=== PATIENT | female | born 2000 | race Caucasian/White ===

== ENCOUNTER 2019-10-29 14:02 | Emergency (ER) | payer MEDICAID, OTHER ==
[~2019-10-29] VITALS: Ht 165.1 cm; Wt 105.0 kg
[2019-10-29 18:59] VITALS: BP 131/69
== END 2019-10-29 19:00 | disposition home or self-care (01) ==
LOC: M ED 14:02
DX: Z48.02 Encounter for removal of sutures (principal)

== ENCOUNTER 2020-08-15 08:00 | Emergency (ER) | payer MEDICAID, OTHER ==
[~2020-08-15] VITALS: Ht 165.1 cm; Wt 115.7 kg
[2020-08-15] MEDS ORDERED: PREVTAB2 PO (08:05)
[2020-08-15] MEDS ORDERED: PANTOPRAZOLE 40MG VIAL (C9113 PER 1) IV ONE (08:30)
[2020-08-15] MEDS ORDERED: NS 1,000 ML IV ONE (08:30)
[2020-08-15] MEDS ORDERED: ACETAMINOPHEN TAB 650MG DOSE (2X325MG) PO ONE (08:30)
[2020-08-15] MEDS ORDERED: ONDANSETRON 4MG/2ML VIAL IV ONE (08:30)
[2020-08-15 09:17] LABS: BASO % 0.5 % (0.0-1.0); EOS # 0.1 10^3/uL (0.0-0.5); HEMATOCRIT 36.9 % (36.0-47.0); HEMOGLOBIN 12.1 g/dl (12.0-15.5); LYMPH # 1.8 10^3/uL (1.5-5.0); LYMPH % 22.7 % (24.0-44.0); MEAN CORPUSCULAR HEMOGLOBIN 27.4 pg (27.0-33.0); MEAN CORPUSCULAR HGB CONC 32.8 g/dl (32.0-36.5); MEAN CORPUSCULAR VOLUME 83.7 fl (80.0-96.0); MONO # 0.6 10^3/uL (0.0-0.8); MONO % 7.6 % (0.0-5.0); NEUTROPHILS # 5.5 10^3/uL (1.5-8.5); PLATELET COUNT, AUTOMATED 257 10^3/uL (150-450); RED BLOOD COUNT 4.41 10^6/uL (4.00-5.40)
[2020-08-15] MEDS ORDERED: ISOVUE-370 76% 100ML VIAL As Ordered ONE (09:30)
[2020-08-15 09:52] LABS: ALBUMIN 3.5 GM/DL (3.2-5.2); ALT/SGPT 55 U/L (12-78); AMYLASE 27 U/L (25-115); BILIRUBIN,DIRECT 0.1 MG/DL (0.0-0.2); BILIRUBIN,TOTAL 0.4 MG/DL (0.2-1.0); CK-MB VALUE MASS < 1.0 NG/ML (<3.6); CPK CREATINE PHOSPHOKINASE 92 U/L (26-192); LIPASE 38 U/L (73-393); MB/CK RELATIVE INDEX 1.09 (< OR =4); TOTAL PROTEIN 7.4 GM/DL (6.4-8.2); TROPONIN I 0.03 NG/ML (< 0.10)
--- NOTE | 2020-08-15 10:17 | REPVR ---
PROCEDURE INFORMATION: Exam: CT Abdomen And Pelvis With Contrast Exam date and time: 08/15/2020 9:42 AM Age: 19 years old Clinical indication: Abdominal pain; Localized; Upper; Additional info: Diffuse upper abd pain, n/v/d TECHNIQUE: Imaging protocol: Computed tomography of the abdomen and pelvis with intravenous contrast. Radiation optimization: All CT scans at this facility use at least one of these dose optimization techniques: automated exposure control; mA and/or kV adjustment per patient size (includes targeted exams where dose is matched to clinical indication); or iterative reconstruction. Contrast material: ISOVUE 370; Contrast volume: 100 ml; Contrast route: INTRAVENOUS (IV); COMPARISON: No relevant prior studies available. FINDINGS: Liver: Normal. No mass. Gallbladder and bile ducts: Normal. No calcified stones. No ductal dilation. Pancreas: Normal. No ductal dilation. Spleen: Normal. No splenomegaly. Adrenals: Normal. No mass. Kidneys and ureters: Normal. No hydronephrosis. Stomach and bowel: Unremarkable. No obstruction. No mucosal thickening. Appendix: Surgical miky and/or clips are noted at the previous base of the appendix. The appendix is surgically absent. Intraperitoneal space: Unremarkable. No free air. No significant fluid collection. Vasculature: Unremarkable. No abdominal aortic aneurysm. Lymph nodes: No enlarged lymph nodes. Urinary bladder: The urinary bladder is partially decompressed and somewhat difficult to assess. Reproductive: Left ovarian 17 mm marginally enhancing physiologic follicle. Bones/joints: Unremarkable. No acute fracture. Soft tissues: A tiny paraumbilical hernia containing only abdominal fat is noted. IMPRESSION: 1. No acute abdominal or pelvic abnormality identified. 2. Prior appendectomy. Electronically signed by: Seven Alejandre On 08/15/2020 10:16:45 AM
--- NOTE | 2020-08-15 10:17 | REPVR ---
PROCEDURE INFORMATION: Exam: XR Chest, 2 Views Exam date and time: 08/15/2020 9:55 AM Age: 19 years old Clinical indication: Other: Abdominal pain TECHNIQUE: Imaging protocol: XR of the chest Views: Frontal and lateral upright views. COMPARISON: No relevant prior studies available. FINDINGS: Tubes, catheters and devices: EKG leads are present overlying the anterior chest. Lungs: The lungs are clear bilaterally. The pulmonary vasculature is normal. Pleural space: No pleural effusion. No pneumothorax. Heart/Mediastinum: The heart is normal in size and contour. Bones/joints: No acute chest wall abnormality identified. Organs: Excreted contrast is present in the bilateral renal collecting systems. IMPRESSION: No acute cardiopulmonary abnormality identified. Electronically signed by: Seven Alejandre On 08/15/2020 10:17:27 AM
--- NOTE | 2020-08-15 10:55 | REPVR ---
PROCEDURE INFORMATION: Exam: US Abdomen, Limited; Right Upper Quadrant Exam date and time: 08/15/2020 10:47 AM Age: 19 years old Clinical indication: Abdominal pain; Epigastric; Additional info: Upper abd pain, R/O cholelithiasis/cholecystitis TECHNIQUE: Imaging protocol: US abdomen. Real time ultrasound with image documentation. Limited exam focused on the right upper quadrant. COMPARISON: CT ABD/PEL W/IV CONTRAST ONLY 08/15/2020 9:35 AM FINDINGS: Liver: Normal. No masses. Gallbladder: The gallbladder wall measures 1.9 mm. No gallstones. Common bile duct: The common bile duct measures 4.6 mm. No ductal calculi as visualized. Pancreas: The pancreas head, neck and body are unremarkable. The tail of the gland is obscured by bowel gas. Right kidney: The right kidney measures 10.7 x 4.7 x 5.8 cm. Unremarkable. A brief color Doppler examination of the right kidney was performed showing normal color shifts. IMPRESSION: No acute right upper quadrant abnormality identified. Electronically signed by: Seven Alejandre On 08/15/2020 10:55:06 AM
[2020-08-15] MEDS ORDERED: ONDA4TAB6 PO (11:14)
[2020-08-15] MEDS ORDERED: PROT1TAB2 PO (11:36)
[2020-08-15 12:00] VITALS: BP 137/65
--- NOTE | 2020-08-16 05:28 | ECGEPIP ---
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
== END 2020-08-15 12:05 | disposition home or self-care (01) ==
LOC: M ED 08:00
DX: R10.84 Generalized abdominal pain (principal); R11.2 Nausea with vomiting, unspecified; R19.7 Diarrhea, unspecified; R50.9 Fever, unspecified; Z79.3 Long term (current) use of hormonal contraceptives
CPT/HCPCS: 71046; 74177; 76705; 80047; 80076; 81001; 82150; 82550; 82553; 83605; 83690; 84702; 85025; 87086; 87880; 93005; 96361; 96374; 96375; 99284; C9113; J2405; Q9967

== ENCOUNTER → 2021-04-24 | Outpatient (CLI) | payer OTHER, SELFPAY ==
[~2021-04-24] MED LIST: ONDA4TAB6 PO; PREVTAB2 PO; PROT1TAB2 PO
--- NOTE | 2021-04-24 12:56 | REP ---
INDICATION: PAIN IN THORACIC SPINE COMPARISON: None. TECHNIQUE: AP, lateral, and swimmers views. FINDINGS: Alignment and kyphosis is maintained. Vertebral bodies intact. No acute fracture / compression injury or subluxation. No degenerative changes. Paravertebral soft tissues are normal. IMPRESSION: Normal thoracic spine series. <Electronically signed by Long Clemente > 04/24/21 [id number]
== END ==
LOC: M RAD 12:21
PROVIDERS: ATTEND Pediatrics
DX: M54.14 Radiculopathy, thoracic region (principal)

== ENCOUNTER 2021-06-13 22:24 | Emergency (ER) | payer OTHER ==
[~2021-06-13] VITALS: Ht 165.1 cm; Wt 128.3 kg
[2021-06-13 22:26] VITALS: BP 138/84
== END 2021-06-13 23:40 | disposition left against medical advice (07) ==
LOC: M ED 22:24
DX: Z53.21 Procedure and treatment not carried out due to patient leaving prior to being seen by health care provider (principal)

== ENCOUNTER 2021-07-05 20:16 | Emergency (ER) | payer OTHER ==
[~2021-07-05] VITALS: Ht 165.1 cm; Wt 125.5 kg
[2021-07-05 20:18] VITALS: BP 137/58
== END 2021-07-06 00:49 | disposition left against medical advice (07) ==
LOC: M ED 20:16
DX: Z53.21 Procedure and treatment not carried out due to patient leaving prior to being seen by health care provider (principal)

== ENCOUNTER 2021-07-08 17:18 | Emergency (ER) | payer OTHER ==
[~2021-07-08] VITALS: Ht 165.1 cm; Wt 126.7 kg
[2021-07-08] MEDS ORDERED: DOXY1CAP62 PO (22:38)
[2021-07-08] MEDS ORDERED: DOXYCYCLINE HYCLATE 100MG TABLET PO ONE (22:45)
[2021-07-08 22:51] VITALS: BP 132/68
== END 2021-07-08 22:52 | disposition home or self-care (01) ==
LOC: M ED 17:18
DX: L03.311 Cellulitis of abdominal wall (principal)

== ENCOUNTER 2021-07-09 10:24 | Emergency (ER) | payer OTHER ==
[~2021-07-09] VITALS: Ht 165.1 cm; Wt 126.9 kg
[~2021-07-09 10:24] MED LIST changes: +DOXY1CAP62 PO
[2021-07-09] MEDS ORDERED: NS 1,000 ML IV ONE (12:30)
--- NOTE | 2021-07-09 13:57 | REP ---
INDICATION: CHEST PAIN. COMPARISON: 08/15/2020 TECHNIQUE: PA and lateral FINDINGS: There is cardiomegaly with left ventricular configuration increased from the prior exam. Lung almonte are clear and stable. No acute patchy parenchymal opacities or pleural effusions have developed the pleural angles are sharp. The osseous structures are stable and intact. IMPRESSION: Cardiomegaly without evidence of acute cardiopulmonary disease. <Electronically signed by Peter Gardiner > 07/09/21 [id number]
[2021-07-09 14:19] LABS: HEMATOCRIT 35.2 % (36.0-47.0); HEMOGLOBIN 11.8 g/dl (12.0-15.5); MEAN CORPUSCULAR HEMOGLOBIN 28.4 pg (27.0-33.0); MEAN CORPUSCULAR HGB CONC 33.5 g/dl (32.0-36.5); MEAN CORPUSCULAR VOLUME 84.6 fl (80.0-96.0); PLATELET COUNT, AUTOMATED 358 10^3/uL (150-450); RED BLOOD COUNT 4.16 10^6/uL (4.00-5.40); WHITE BLOOD COUNT 9.1 10^3/uL (4.0-10.0)
[2021-07-09 14:31] LABS: INR 0.94; PROTHROMBIN TIME 12.9 SECONDS (12.7-14.5)
[2021-07-09 14:32] LABS: PARTIAL THROMBOPLASTIN TIME 38.5 SECONDS (25.9-37.0)
[2021-07-09 14:34] LABS: D-DIMER QUANT 650.56 ng/ml (<500)
[2021-07-09 14:50] LABS: ERYTHROCYTE SEDIMENTATION RATE 47 mm/hr (0-20)
[2021-07-09] MEDS ORDERED: ISOVUE-370 76% 100ML VIAL As Ordered ONE (14:58)
[2021-07-09 15:03] LABS: LYMPHOCYTES 23 % (16-44); NEUTROPHILS 77 % (28-66)
[2021-07-09 15:04] LABS: PLATELET ESTIMATE NORMAL (NORMAL)
[2021-07-09 15:18] LABS: ALBUMIN 3.4 GM/DL (3.2-5.2); ALT/SGPT 49 U/L (12-78); BILIRUBIN,DIRECT 0.1 MG/DL (0.0-0.2); BILIRUBIN,TOTAL 0.6 MG/DL (0.2-1.0); CK-MB VALUE MASS < 1.0 NG/ML (<3.6); CPK CREATINE PHOSPHOKINASE 163 U/L (26-192); FREE T4 1.09 NG/DL (0.76-1.46); LIPASE 50 U/L (73-393); MAGNESIUM LEVEL 2.2 MG/DL (1.8-2.4); MB/CK RELATIVE INDEX 0.61 (< OR =4); NT-PRO BNP 997 PG/ML (<125); TOTAL PROTEIN 7.3 GM/DL (6.4-8.2); TROPONIN I < 0.02 NG/ML (< 0.10)
--- NOTE | 2021-07-09 15:38 | REP ---
INDICATION: SOB; r/o PE. COMPARISON: Radiographs today. TECHNIQUE: CT angiogram chest performed following the intravenous administration of 100 cc of Isovue 370. Sagittal and coronal reconstruction images are performed. FINDINGS: Lungs: Clear, no infiltrate or nodule. Mediastinum: No adenopathy. Pulmonary arteries: No evidence of pulmonary embolism. Mercedes: No adenopathy. Axilla: No adenopathy. Pleura: No effusion. Heart: Not enlarged. Thoracic aorta: No aneurysm or dissection. Upper abdominal structures: Unremarkable. Visualized osseous structures: Unremarkable. IMPRESSION: No CT evidence of pulmonary embolism. No infiltrate seen. <Electronically signed by Paulino Metz > 07/09/21 [id number]
[2021-07-09 17:45] VITALS: BP 120/58
--- NOTE | 2021-07-09 19:40 | ECGEPIP ---
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
--- NOTE | 2021-07-11 13:11 | ED PDOC ---
Post-Departure Follow-Up dr carreon faxed formal report of cxr for fu anandg Hugh Diaz MD Jul 11, 2021 13:11
== END 2021-07-09 18:07 | disposition home or self-care (01) ==
LOC: M ED 10:24
DX: I44.0 Atrioventricular block, first degree (principal); I51.7 Cardiomegaly; R00.2 Palpitations
CPT/HCPCS: 36415; 71046; 71275; 80047; 80076; 82550; 82553; 83690; 83735; 83880; 84439; 84443; 84702; 85025; 85379; 85610; 85652; 85730; 86140; 93005; 93041; 94760; 99285; Q9967

== ENCOUNTER → 2021-08-08 | Outpatient (REF) | payer BC, OTHER ==
[~2021-08-08] MED LIST changes: +DOXY-443 PO; -DOXY1CAP62 PO
== END ==
LOC: M SFHCWAGY 14:56
PROVIDERS: ATTEND Advanced Practice Midwife
DX: Z01.419 Encounter for gynecological examination (general) (routine) without abnormal findings (principal); Z12.4 Encounter for screening for malignant neoplasm of cervix; Z77.9 Other contact with and (suspected) exposures hazardous to health

== ENCOUNTER → 2021-10-24 | Outpatient (CLI) | payer BC, OTHER | LOC: M CARPUL 14:04 | PROVIDERS: ATTEND Pediatrics | DX: R07.9 Chest pain, unspecified (principal); I34.0 Nonrheumatic mitral (valve) insufficiency ==

== ENCOUNTER 2021-12-05 08:46 | Emergency (ER) | payer BC, MEDICAID, OTHER ==
[~2021-12-05] VITALS: Ht 165.1 cm; Wt 121.4 kg
[2021-12-05] MEDS ORDERED: ONDANSETRON 4 MG ORAL DISINTEGRATING TAB PO ONE (09:15)
[2021-12-05 11:09] LABS: AMPHETAMINES LEVEL URINE NEGATIVE (NEGATIVE); BARBITURATES URINE NEGATIVE (NEGATIVE); BENZODIAZEPINES URINE NEGATIVE (NEGATIVE); CANNABINOIDS URINE POSITIVE (NEGATIVE); COCAINE METABOLITE URINE NEGATIVE (NEGATIVE); METHADONE URINE NEGATIVE (NEGATIVE); OPIATES URINE NEGATIVE (NEGATIVE); PHENCYCLIDINE URINE NEGATIVE (NEGATIVE)
[2021-12-05 11:41] VITALS: BP 117/72
== END 2021-12-05 12:03 | disposition home or self-care (01) ==
LOC: M ED 08:46
DX: F12.120 Cannabis abuse with intoxication, uncomplicated (principal)
CPT/HCPCS: 80307; 82077; 99284; Q0162

== ENCOUNTER → 2022-04-09 | Outpatient (CLI) | payer MEDICAID, OTHER | LOC: M RAD 10:49 | PROVIDERS: ATTEND Pediatrics | DX: S93.401A Sprain of unspecified ligament of right ankle, initial encounter (principal); W18.30XA Fall on same level, unspecified, initial encounter; Y92.009 Unspecified place in unspecified non-institutional (private) residence as the place of occurrence of the external cause ==

== ENCOUNTER → 2023-02-12 | Outpatient (REF) | payer OTHER | LOC: M PLALAB 10:34 | PROVIDERS: ATTEND Nurse Practitioner Family | DX: Z11.3 Encounter for screening for infections with a predominantly sexual mode of transmission (principal) ==

== ENCOUNTER 2023-11-05 16:54 | Emergency (ER) | payer OTHER ==
[~2023-11-05] VITALS: Ht 165.1 cm; Wt 117.6 kg
[2023-11-05] MEDS ORDERED: BENZ200C70 PO (18:24)
[2023-11-05] MEDS ORDERED: AMOX875T2 PO (18:24)
[2023-11-05] MEDS ORDERED: BENZONATATE 100MG CAPSULE PO ONE (18:25)
[2023-11-05] MEDS ORDERED: AUGMENTIN 875 MG TAB PO ONE (18:25)
[2023-11-05 18:43] VITALS: BP 142/82; TEMP 98.8; O2SAT 94
== END 2023-11-05 18:48 | disposition home or self-care (01) ==
LOC: M ED 16:54
DX: J01.90 Acute sinusitis, unspecified (principal); Z86.16 Personal history of COVID-19

== ENCOUNTER → 2023-12-04 | Outpatient (REF) | payer OTHER ==
[~2023-12-04] MED LIST changes: +AMOX875T2 PO; +BENZ200C70 PO
== END ==
LOC: M LAB REF 17:45
PROVIDERS: ATTEND Nurse Practitioner Family
DX: N95.2 Postmenopausal atrophic vaginitis (principal)

== ENCOUNTER 2023-12-17 18:55 | Emergency (ER) | payer OTHER ==
[~2023-12-17] VITALS: Ht 165.1 cm; Wt 116.1 kg
[2023-12-17 20:20] LABS: BASO # 0.1 10^3/uL (0.0-0.2); BASO % 0.4 % (0.0-1.0); EOS # 0.1 10^3/uL (0.0-0.5); EOS % 0.4 % (0.0-3.0); HEMATOCRIT 38.2 % (36.0-47.0); HEMOGLOBIN 13.1 g/dl (12.0-15.5); LYMPH # 3.5 10^3/uL (1.5-5.0); LYMPH % 22.6 % (24.0-44.0); MEAN CORPUSCULAR HEMOGLOBIN 29.3 pg (27.0-33.0); MEAN CORPUSCULAR HGB CONC 34.3 g/dl (32.0-36.5); MEAN CORPUSCULAR VOLUME 85.5 fl (80.0-96.0); MONO % 6.6 % (2.0-8.0); NEUTROPHILS # 10.7 10^3/uL (1.5-8.5); NEUTROPHILS % 69.7 % (36.0-66.0); PLATELET COUNT, AUTOMATED 282 10^3/uL (150-450); RED BLOOD COUNT 4.47 10^6/uL (4.00-5.40); WHITE BLOOD COUNT 15.3 10^3/uL (4.0-10.0)
[2023-12-17 20:31] LABS: BLOOD UREA NITROGEN 8 MG/DL (9-23); CALCIUM LEVEL 9.1 MG/DL (8.5-10.1); CARBON DIOXIDE LEVEL 24 MMOL/L (20-31); CHLORIDE LEVEL 107 MMOL/L (98-107); CREATININE FOR GFR 0.58 MG/DL (0.55-1.30); GLOMERULAR FILTRATION RATE > 60.0 (>60); GLUCOSE, FASTING 82 MG/DL (60-100); POTASSIUM SERUM 4.4 MMOL/L (3.5-5.1); SODIUM LEVEL 137 MMOL/L (136-145)
[2023-12-17 20:58] LABS: HCG, SERUM QUANTITATIVE 102912.2 MIU/ML (<4.2)
[2023-12-18] MEDS ORDERED: METR-265 PO (00:36)
[2023-12-18 00:40] VITALS: BP 116/69; TEMP 97.6; O2SAT 100
[2023-12-18] MEDS: metroNIDAZOLE (FLAGYL) 500MG TABLET PO ONE (00:49)
[2023-12-18 03:17] LABS: GC DNA AMPLIFICATION NEGATIVE (NEGATIVE); Trichomonas vaginalis (AMP) NOT DETECTED (NEGATIVE)
== END 2023-12-18 00:55 | disposition home or self-care (01) ==
LOC: M ED 18:55
DX: N76.0 Acute vaginitis (principal); Z79.899 Other long term (current) drug therapy

== ENCOUNTER 2024-01-30 01:37 | Emergency (ER) | payer MEDICAID, OTHER, SELFPAY ==
[~2024-01-30] VITALS: Ht 165.1 cm; Wt 115.0 kg
[2024-01-30] MEDS: NS 1,000 ML IV ONE (05:26)
[2024-01-30] MEDS: ONDANSETRON 4MG 2ML VIAL IV ONE (05:26)
[2024-01-30 05:37] LABS: BASO % 0.2 % (0.0-1.0); EOS % 0.1 % (0.0-3.0); HEMATOCRIT 34.1 % (36.0-47.0); LYMPH # 2.1 10^3/uL (1.5-5.0); LYMPH % 15.2 % (24.0-44.0); MEAN CORPUSCULAR HEMOGLOBIN 29.9 pg (27.0-33.0); MEAN CORPUSCULAR HGB CONC 35.2 g/dl (32.0-36.5); MEAN CORPUSCULAR VOLUME 84.8 fl (80.0-96.0); MONO # 0.6 10^3/uL (0.0-0.8); MONO % 4.2 % (2.0-8.0); NEUTROPHILS # 10.9 10^3/uL (1.5-8.5); NEUTROPHILS % 79.6 % (36.0-66.0); PLATELET COUNT, AUTOMATED 316 10^3/uL (150-450); RED BLOOD COUNT 4.02 10^6/uL (4.00-5.40); WHITE BLOOD COUNT 13.6 10^3/uL (4.0-10.0)
[2024-01-30 06:09] LABS: LIPASE 20 U/L (12-53)
[2024-01-30 06:17] LABS: ALBUMIN 3.4 G/DL (3.2-5.2); ALKALINE PHOSPHATASE 55 U/L (46-116); ALT/SGPT 17 U/L (7.0-40); AST/SGOT 15 U/L (<34); BILIRUBIN,DIRECT 0.2 MG/DL (<0.4); BILIRUBIN,TOTAL 0.7 MG/DL (0.3-1.2); BLOOD UREA NITROGEN < 5 MG/DL (9-23); CALCIUM LEVEL 9.4 MG/DL (8.5-10.1); CARBON DIOXIDE LEVEL 26 MMOL/L (20-31); CHLORIDE LEVEL 105 MMOL/L (98-107); CREATININE FOR GFR 0.49 MG/DL (0.55-1.30); GLOMERULAR FILTRATION RATE > 60.0 (>60); GLUCOSE, FASTING 90 MG/DL (60-100); POTASSIUM SERUM 4.1 MMOL/L (3.5-5.1); SODIUM LEVEL 139 MMOL/L (136-145); TOTAL PROTEIN 6.7 G/DL (5.7-8.2)
[2024-01-30] MEDS ORDERED: ONDA4TAB6 PO (06:48)
[2024-01-30 07:00] VITALS: TEMP 97.3
[2024-01-30 07:45] VITALS: BP 130/78; O2SAT 99
== END 2024-01-30 08:05 | disposition home or self-care (01) ==
LOC: M ED 01:37
DX: R11.10 Vomiting, unspecified (principal); Z79.899 Other long term (current) drug therapy
CPT/HCPCS: 80048; 80076; 81001; 83690; 85025; 85027; 86762; 86780; 86803; 86850; 86900; 86901; 87086; 87340; 87389; 87810; 87850; 93041; 96361; 96374; 99284; G0463; J2405

== ENCOUNTER → 2024-01-30 | Outpatient (CLI) | payer OTHER ==
[~2024-01-30] MED LIST changes: +METR-265 PO
[2024-01-30 17:46] LABS: HEMATOCRIT 35.9 % (36.0-47.0); HEMOGLOBIN 12.1 g/dl (12.0-15.5); MEAN CORPUSCULAR HEMOGLOBIN 29.1 pg (27.0-33.0); MEAN CORPUSCULAR HGB CONC 33.7 g/dl (32.0-36.5); MEAN CORPUSCULAR VOLUME 86.3 fl (80.0-96.0); PLATELET COUNT, AUTOMATED 322 10^3/uL (150-450); RED BLOOD COUNT 4.16 10^6/uL (4.00-5.40); WHITE BLOOD COUNT 12.8 10^3/uL (4.0-10.0)
[2024-01-30 19:58] LABS: GC DNA AMPLIFICATION NEGATIVE (NEGATIVE)
[2024-01-30 20:46] LABS: HEPATITIS C VIRUS ABY INDEX < 0.02 INDEX (<0.8); HIV 1&2 SCREEN NEGATIVE (NEGATIVE)
== END ==
LOC: M PLALAB 15:22
PROVIDERS: ATTEND Obstetrics & Gynecology
DX: Z34.80 Encounter for supervision of other normal pregnancy, unspecified trimester (principal)

== ENCOUNTER → 2024-03-25 | Outpatient (CLI) | payer OTHER, SELFPAY ==
[~2024-03-25] MED LIST changes: +DOXY-323 PO; -DOXY-443 PO
[2024-03-25 15:58] LABS: TOTAL PROTEIN,RANDOM URINE 22.5 MG/DL (0.0-14.0)
[2024-03-25 16:03] LABS: CREATININE,RANDOM URINE 186.2 MG/DL
[2024-03-25 16:56] LABS: GC DNA AMPLIFICATION NEGATIVE (NEGATIVE)
[2024-03-25 18:50] LABS: URIC ACID 4.3 MG/DL (3.1-7.8)
[2024-03-25 18:52] LABS: LDH LACTATE DEHYDROGENASE 141 U/L (120-246)
[2024-03-25 18:53] LABS: ALT/SGPT 15 U/L (7.0-40); AST/SGOT 12 U/L (<34); BILIRUBIN,TOTAL 0.5 MG/DL (0.3-1.2); CREATININE FOR GFR 0.66 MG/DL (0.55-1.30); GLOMERULAR FILTRATION RATE > 60.0 (>60)
== END ==
LOC: M PLALAB 14:34
PROVIDERS: ATTEND Advanced Practice Midwife
DX: O30.042 Twin pregnancy, dichorionic/diamniotic, second trimester (principal)

== ENCOUNTER → 2024-05-04 | Outpatient (CLI) | payer OTHER ==
[~2024-05-04] MED LIST changes: +ONDA-282 PO; -ONDA4TAB6 PO
== END ==
LOC: M WHC 06:45
PROVIDERS: ATTEND Obstetrics & Gynecology
DX: Z36.2 Encounter for other antenatal screening follow-up (principal); O30.042 Twin pregnancy, dichorionic/diamniotic, second trimester; Z3A.27 27 weeks gestation of pregnancy

== ENCOUNTER → 2024-06-02 | Outpatient (CLI) | payer OTHER ==
[2024-06-02 18:09] LABS: HEMATOCRIT 31.4 % (36.0-47.0); HEMOGLOBIN 10.2 g/dl (12.0-15.5); MEAN CORPUSCULAR HEMOGLOBIN 28.3 pg (27.0-33.0); MEAN CORPUSCULAR HGB CONC 32.5 g/dl (32.0-36.5); MEAN CORPUSCULAR VOLUME 87.2 fl (80.0-96.0); PLATELET COUNT, AUTOMATED 267 10^3/uL (150-450); WHITE BLOOD COUNT 10.8 10^3/uL (4.0-10.0)
[2024-06-02 20:25] LABS: GC DNA AMPLIFICATION NEGATIVE (NEGATIVE)
== END ==
LOC: M PLALAB 14:02
PROVIDERS: ATTEND Obstetrics & Gynecology
DX: O30.042 Twin pregnancy, dichorionic/diamniotic, second trimester (principal)

== ENCOUNTER → 2024-06-10 | Outpatient (CLI) | payer OTHER | LOC: M WHC 07:10 | PROVIDERS: ATTEND Obstetrics & Gynecology | DX: O30.043 Twin pregnancy, dichorionic/diamniotic, third trimester (principal); Z3A.32 32 weeks gestation of pregnancy ==

== ENCOUNTER → 2024-07-01 | Outpatient (REF) | payer OTHER ==
[~2024-07-01] MED LIST changes: +FERR325T3 PO; +MULTTAB20 PO
== END ==
LOC: M SFHCWAGY 16:56
PROVIDERS: ATTEND Obstetrics & Gynecology
DX: Z36.89 Encounter for other specified antenatal screening (principal); Z3A.36 36 weeks gestation of pregnancy

== ENCOUNTER → 2024-07-19 | Outpatient (CLI) | payer OTHER | LOC: M WHC 11:42 | PROVIDERS: ATTEND Obstetrics & Gynecology | DX: N64.59 Other signs and symptoms in breast (principal) ==

== ENCOUNTER 2024-07-21 05:32 | Inpatient (IN) | payer OTHER ==
[~2024-07-21] VITALS: Ht 165.1 cm; Wt 125.6 kg
[2024-07-21] VITALS (8 sets, daily range): BP systolic 99–131; BP diastolic 52–60; TEMP 97.7; O2SAT 95–100
[~2024-07-21 05:32] MED LIST changes: -DOXY-323 PO; +DOXY-441 PO
[2024-07-21] MEDS ORDERED: ceFAZolin SOD 3 GM IV Place Holder IV ONE (05:40)
[2024-07-21] MEDS ORDERED: HOME MED LIST COMPLETE! XX SCH (05:45)
[2024-07-21 06:40] LABS: HEMATOCRIT 30.4 % (36.0-47.0); MEAN CORPUSCULAR HEMOGLOBIN 26.9 pg (27.0-33.0); MEAN CORPUSCULAR HGB CONC 32.9 g/dl (32.0-36.5); MEAN CORPUSCULAR VOLUME 81.7 fl (80.0-96.0); PLATELET COUNT, AUTOMATED 260 10^3/uL (150-450); RED BLOOD COUNT 3.72 10^6/uL (4.00-5.40); WHITE BLOOD COUNT 10.5 10^3/uL (4.0-10.0)
[2024-07-21] MEDS: LR 1,000 ML IV SCH (07:14)
[2024-07-21] MEDS: LACTATED RINGER'S 1000 ML IV STA (07:14)
[2024-07-21] MEDS: BICITRA 30ML SOLN UDC PO ONE (07:14)
[2024-07-21] MEDS: ceFAZolin SOD 1 GM in D5W MINI-BAG PLUS 50 ML IV ONE (07:14)
[2024-07-21] MEDS: ceFAZolin SOD 2 GM in IV 1 EA IV ONE (07:15)
[2024-07-21] MEDS ORDERED: PHENYLephrine 500MCG 5ML (100MCG/ML) SYRINGE As Ordered ONE (08:03)
[2024-07-21] MEDS ORDERED: ONDANSETRON 4MG 2ML VIAL As Ordered ONE (08:03)
[2024-07-21] MEDS ORDERED: fentaNYL 100 MCG/2 ML INJECTION As Ordered ONE (08:03)
[2024-07-21] MEDS ORDERED: MORPHINE PRES-FREE INJ 10 MG/10 ML VIAL As Ordered ONE (08:03)
[2024-07-21] MEDS ORDERED: ePHEDrine SULFATE 25 MG/5 ML(5MG/ML) SYRINGE As Ordered ONE (08:03)
[2024-07-21] MEDS ORDERED: OXYTOCIN INJ 10UNITS/ML 1ML VIAL As Ordered ONE (08:03)
[2024-07-21 08:29] LABS: HEPATITIS C VIRUS ABY INDEX 0.02 INDEX (<0.8)
[2024-07-21] MEDS ORDERED: KETOROLAC 60MG 2ML VIAL As Ordered ONE (08:34)
[2024-07-21] MEDS ORDERED: METOCLOPRAMIDE INJ 10MG/2ML VIAL As Ordered ONE (08:36)
[2024-07-21] MEDS ORDERED: MEPERIDINE 50 MG/ML 1ML VIAL As Ordered ONE (08:44)
[2024-07-21] MEDS ORDERED: OXYTOCIN 30UNITS IN 0.9% NaCl 500ML IV BAG As Ordered ONE (08:51)
[2024-07-21] MEDS ORDERED: SIMETHICONE 80MG CHEW TAB PO PRN (08:55)
[2024-07-21] MEDS ORDERED: RHO(D) IMMUNE GLOBULIN/MALTOSE 500MCG(2500IU)/2.2ML VIAL (WINRHO) IM SCH (08:55)
[2024-07-21] MEDS ORDERED: MORPHINE 4 MG/ML 1ML VIAL IV PRN (08:55)
[2024-07-21] MEDS ORDERED: CALCIUM CARBONATE 500 MG CHEW U/D PO PRN (08:55)
[2024-07-21] MEDS ORDERED: ONDANSETRON 4MG 2ML VIAL IV PRN ×2 (08:55→09:20)
[2024-07-21] MEDS ORDERED: METHYLERGONOVINE MALEATE 0.2MG/ML 1ML VIAL IM PRN (08:55)
[2024-07-21] MEDS ORDERED: ANUSOL HC CREAM 30GM TOP PRN (08:55)
[2024-07-21] MEDS ORDERED: PERCOCET 5MG/325MG TAB PO PRN (08:55)
[2024-07-21] MEDS ORDERED: IBUP80TA PO (09:01)
[2024-07-21] MEDS ORDERED: COLA100C5 PO (09:01)
[2024-07-21] MEDS ORDERED: PERCOCET PO (09:01)
[2024-07-21] MEDS: OXYTOCIN DRIP 30 UNITS in IV 1 EA IV SCH (09:19)
[2024-07-21] MEDS ORDERED: NALOXONE INJ 0.4MG/1ML VIAL IV PRN ×2 (09:20)
[2024-07-21] MEDS ORDERED: **NOTE PATIENT COMMENT** MISC XX SCH (09:20)
[2024-07-21] MEDS ORDERED: diphenhydrAMINE 50MG/ML VIAL IV PRN (09:20)
[2024-07-21] MEDS ORDERED: METOCLOPRAMIDE INJ 10MG/2ML VIAL IV PRN (09:20)
[2024-07-21] MEDS ORDERED: fentaNYL 100 MCG/2 ML INJECTION IV PRN (09:20)
[2024-07-21] MEDS ORDERED: UNRESOLVED CLARIFICATION ENTRY XX SCH (11:00)
[2024-07-21] MEDS: PRENATAL VITAMINS CHEWABLE TABLET PO SCH (11:06)
[2024-07-21] MEDS: DOCUSATE SODIUM 100MG CAPSULE PO SCH (11:06)
[2024-07-21] MEDS: SLF 3 ML SYR IV SCH (11:07)
[2024-07-21] MEDS: LR 1,000 ML IV ONE (12:55)
[2024-07-21] MEDS: KETOROLAC 30 MG/ML 1ML VIAL IV SCH (15:20)
[2024-07-21] MEDS: ENOXAPARIN 40MG/0.4ML SYRINGE (J1650 PER 10MG) SC SCH (16:28)
[2024-07-21] MEDS: LR 800 ML IV ONE (18:55)
[2024-07-22 02:00] VITALS: BP 106/51; O2SAT 99
[2024-07-22 06:00] VITALS: BP 119/55; O2SAT 98
[2024-07-22 06:12] LABS: MEAN CORPUSCULAR HEMOGLOBIN 27.1 pg (27.0-33.0); MEAN CORPUSCULAR HGB CONC 32.7 g/dl (32.0-36.5); MEAN CORPUSCULAR VOLUME 82.8 fl (80.0-96.0); PLATELET COUNT, AUTOMATED 196 10^3/uL (150-450); RED BLOOD COUNT 2.73 10^6/uL (4.00-5.40); WHITE BLOOD COUNT 10.8 10^3/uL (4.0-10.0)
[2024-07-22 06:26] LABS: HEMATOCRIT 22.6 % (36.0-47.0); HEMOGLOBIN 7.4 g/dl (12.0-15.5)
[2024-07-22] MEDS: ACETAMINOPHEN 500 MG TAB PO PRN (08:21)
[2024-07-22 10:11] VITALS: BP 142/73; O2SAT 98
[2024-07-22] MEDS: IBUPROFEN 800 MG TAB PO SCH (10:20)
[2024-07-22 14:20] VITALS: BP 106/53; O2SAT 98
[2024-07-22 18:29] VITALS: BP 118/58; O2SAT 99
[2024-07-22 22:00] VITALS: BP 129/58; O2SAT 100
[2024-07-23 02:00] VITALS: BP 129/59; O2SAT 99
[2024-07-23] MEDS: PERCOCET 5MG/325MG TAB PO PRN (04:42)
[2024-07-23 06:00] VITALS: BP 124/59; O2SAT 98
[2024-07-23] MEDS: MEASLES,MUMPS,RUBELLA VACCINE INJ (MMR-II) SC.IMMUN ONE (07:36)
== END 2024-07-23 12:15 | disposition home or self-care (01) | DRG 540 ==
LOC: M LDI 05:32 → M OBS 10:29
PROVIDERS: ADMIT Obstetrics & Gynecology; ATTEND Obstetrics & Gynecology
PROC: 10D00Z1 Extraction of Products of Conception, Low, Open Approach (ICD-10-PCS; principal; 2024-07-21 07:30)
DX: O32.1XX1 Maternal care for breech presentation, fetus 1 (principal); Z37.2 Twins, both liveborn; Z3A.38 38 weeks gestation of pregnancy; O32.1XX2 Maternal care for breech presentation, fetus 2; O30.043 Twin pregnancy, dichorionic/diamniotic, third trimester

== ENCOUNTER 2024-07-27 11:57 | Emergency (ER) | payer OTHER ==
[~2024-07-27] VITALS: Ht 165.1 cm; Wt 116.7 kg
[~2024-07-27 11:57] MED LIST changes: +COLA100C5 PO; +IBUP80TA PO; +PERCOCET PO
[2024-07-27 14:06] LABS: BASO % 0.3 % (0.0-1.0); EOS # 0.1 10^3/uL (0.0-0.5); EOS % 0.8 % (0.0-3.0); HEMATOCRIT 26.2 % (36.0-47.0); HEMOGLOBIN 8.4 g/dl (12.0-15.5); LYMPH # 1.7 10^3/uL (1.5-5.0); LYMPH % 17.9 % (24.0-44.0); MEAN CORPUSCULAR HEMOGLOBIN 26.8 pg (27.0-33.0); MEAN CORPUSCULAR HGB CONC 32.1 g/dl (32.0-36.5); MEAN CORPUSCULAR VOLUME 83.7 fl (80.0-96.0); MONO # 0.4 10^3/uL (0.0-0.8); MONO % 4.7 % (2.0-8.0); NEUTROPHILS # 7.2 10^3/uL (1.5-8.5); NEUTROPHILS % 75.9 % (36.0-66.0); PLATELET COUNT, AUTOMATED 311 10^3/uL (150-450); RED BLOOD COUNT 3.13 10^6/uL (4.00-5.40); WHITE BLOOD COUNT 9.5 10^3/uL (4.0-10.0)
[2024-07-27 14:14] LABS: INR 1.01; PARTIAL THROMBOPLASTIN TIME 30.5 SECONDS (24.8-34.2)
[2024-07-27 14:21] LABS: ERYTHROCYTE SEDIMENTATION RATE 46 mm/hr (0-20)
[2024-07-27 14:28] LABS: ALBUMIN 2.6 G/DL (3.2-5.2); ALKALINE PHOSPHATASE 157 U/L (46-116); ALT/SGPT 19 U/L (7.0-40); AST/SGOT 20 U/L (<34); BILIRUBIN,DIRECT 0.2 MG/DL (<0.4); BILIRUBIN,TOTAL 0.6 MG/DL (0.3-1.2); BLOOD UREA NITROGEN 16 MG/DL (9-23); CALCIUM LEVEL 8.5 MG/DL (8.5-10.1); CARBON DIOXIDE LEVEL 23 MMOL/L (20-31); CHLORIDE LEVEL 111 MMOL/L (98-107); GLOMERULAR FILTRATION RATE > 60.0 (>60); GLUCOSE, FASTING 67 MG/DL (60-100); POTASSIUM SERUM 4.6 MMOL/L (3.5-5.1); SODIUM LEVEL 140 MMOL/L (136-145); TOTAL PROTEIN 6.3 G/DL (5.7-8.2)
[2024-07-27] MEDS ORDERED: ISOVUE-370 76% 100ML VIAL As Ordered ONE (14:50)
[2024-07-27 17:25] VITALS: O2SAT 98
[2024-07-27 17:53] VITALS: BP 130/65; TEMP 97.6; O2SAT 98
== END 2024-07-27 17:57 | disposition home or self-care (01) ==
LOC: M ED 11:57
DX: R06.02 Shortness of breath (principal); D64.9 Anemia, unspecified; R22.43 Localized swelling, mass and lump, lower limb, bilateral; R00.1 Bradycardia, unspecified; Z79.1 Long term (current) use of non-steroidal anti-inflammatories (NSAID); Z79.810 Long term (current) use of selective estrogen receptor modulators (SERMs); Z79.899 Other long term (current) drug therapy
CPT/HCPCS: 36415; 71045; 71275; 80048; 80076; 83880; 85025; 85610; 85652; 85730; 86140; 93005; 93970; 99284; Q9967

== ENCOUNTER → 2024-12-09 | Outpatient (REF) | payer OTHER ==
[2024-12-09 15:04] LABS: Trichomonas vaginalis (AMP) NOT DETECTED (NEGATIVE)
[2024-12-09 15:28] LABS: GC DNA AMPLIFICATION NEGATIVE (NEGATIVE)
== END ==
LOC: M SFHCWAGY 13:39
PROVIDERS: ATTEND Obstetrics & Gynecology
DX: Z12.4 Encounter for screening for malignant neoplasm of cervix (principal)

== ENCOUNTER → 2025-09-28 | Outpatient (CLI) | payer OTHER | LOC: M SOG 08:05 | PROVIDERS: ATTEND Orthopaedic Surgery | DX: M25.562 Pain in left knee (principal) ==

== ENCOUNTER → 2025-10-05 | Outpatient (REF) | payer OTHER ==
[2025-10-05 13:34] LABS: ALT/SGPT 31 U/L (7.0-40); AST/SGOT 23 U/L (<34); CALCIUM LEVEL 9.5 MG/DL (8.5-10.1); CARBON DIOXIDE LEVEL 26 MMOL/L (20-31); CHLORIDE LEVEL 103 MMOL/L (98-107); CHOLESTEROL LEVEL 143 MG/DL (<200); CHOLESTEROL RISK RATIO 3.48 (<5); CREATININE FOR GFR 0.70 MG/DL (0.55-1.30); GLOMERULAR FILTRATION RATE > 90.0 (>60); LDL CHOLESTEROL 75.4 MG/DL (<100); NON-HDL-C 102.0 MG/DL; POTASSIUM SERUM 4.4 MMOL/L (3.5-5.1); SODIUM LEVEL 140 MMOL/L (136-145); TOTAL 25(OH) VITAMIN D 35.4 NG/ML (20.0-100.0); TRIGLYCERIDES LEVEL 133 MG/DL (<150)
[2025-10-05 14:09] LABS: ESTIMATED AVERAGE GLUCOSE 100.0 MG/DL (60-110)
== END ==
LOC: M LAB REF 12:38
PROVIDERS: ATTEND Physician Assistant
DX: E66.9 Obesity, unspecified (principal); E55.9 Vitamin D deficiency, unspecified

== ENCOUNTER 2025-10-11 13:29 | Outpatient (RCR) | payer OTHER | END 2025-10-26 | LOC: M PT 13:29 | PROVIDERS: ATTEND Orthopaedic Surgery | DX: M25.562 Pain in left knee (principal) ==